=== PATIENT | female | born 1990 | race Caucasian/White ===

== ENCOUNTER 2017-02-18 20:03 | Emergency (ER) | payer OTHER ==
[2017-02-18] MEDS ORDERED: Sodium Chloride 0.9% 1000 ML 1,000 ML ONE ×2 (20:55→22:10)
[2017-02-18] MEDS ORDERED: Sodium Chloride 0.9% 1000 ML 1,000 ML IV STA ×2 (20:59→22:09)
--- NOTE | 2017-02-18 21:06 | ERPHSYRPT ---
- History of Present Illness Time Seen by Provider: 02/18/17 20:50 Source: patient Exam Limitations: clinical condition Patient Subjective Stated Complaint: pt states she has been sick, vomiting, coughing, and having fever off and on for approx 1 month. states she has begun having pain below her lt ribcage since yesterday Triage Nursing Assessment: pt alert and oriented. answers questions approp. pt ambulatory with steady gait noted. skin flushed, hot, dry. respirations nonlabored with lungs cta. abd soft and nontender to light palpation. Physician History: PATIENT INITIALLY TREATED FOR FLU LIKE SYMPTOMS 1 MONTH AGO, HAS INTERMITTENT FEVER, COUGH PRODUCTIVE YELLOW SPUTUM, AND SORETHROAT. HAD EPISODES OF EMESIS X 4 SEVERAL DAYS AGO. HAS VERY POOR ORAL FLUID INTAKE. DENIES DIARRHEA, ABDOMINAL PAIN, DYSPNEA. Timing/Duration: week(s) Cough Quality/Degree: moderate, productive cough, sputum (YELLOW) Possible Cause: no prior episodes Modifying Factors: Improves With: coughing Associated Symptoms: fever, chills, cough, sore throat International travel in last 2 weeks: No Allergies/Adverse Reactions: cephalexin [From Keflex] Allergy (Verified 02/18/17 20:31) Hives morphine Allergy (Verified 02/18/17 20:31) Hives nitrofurantoin [From Macrobid] Allergy (Verified 02/18/17 20:31) Hives Home Medications: Control 1 tab PO DAILY 02/18/17 [History] Hx Tetanus, Diphtheria Vaccination/Date Given: Yes Hx Influenza Vaccination/Date Given: No Hx Pneumococcal Vaccination/Date Given: No Immunizations Up to Date: Yes - Review of Systems Constitutional: Fever Eyes: No Symptoms Ears, Nose, & Throat: Throat Pain Respiratory: Cough, No Dyspnea Cardiac: No Symptoms, No Chest Pain, No Edema, No Syncope Abdominal/Gastrointestinal: Nausea, Vomiting, No Abdominal Pain, No Diarrhea Genitourinary Symptoms: No Symptoms, No Dysuria Musculoskeletal: No Symptoms, No Back Pain, No Neck Pain Skin: No Symptoms, No Rash Neurological: No Symptoms, No Dizziness, No Focal Weakness, No Sensory Changes Psychological: No Symptoms Endocrine: No Symptoms All Other Systems: Reviewed and Negative - Past Medical History Pertinent Past Medical History: Yes Neurological History: Migraines History: Other Other Medical History: hashimotos, recent dx. migraines. renal reflux as a child. heart murmer - Past Surgical History Past Surgical History: Yes Musculoskeletal: Orthopedic Surgery Other Surgical History: fx arm, tonsills - Social History Smoking Status: Never smoker Exposure to second hand smoke: No Drug Use: none Patient Lives Alone: No - Female History Hx Last Menstrual Period: 2 weeks ago - Nursing Vital Signs Nursing Vital Signs: Initial Vital Signs Temperature 98.5 F Temperature Source Oral Pulse Rate 110 Respiratory Rate 20 Blood Pressure [] 98/58 Pain Intensity 1 - Physical Exam General Appearance: no apparent distress, alert Eye Exam: PERRL/EOMI, eyes nml inspection Ears, Nose, Throat Exam: normal ENT inspection, TMs normal, pharynx normal, moist mucous membranes Neck Exam: normal inspection, non-tender, supple, full range of motion Respiratory Exam: normal breath sounds, chest tenderness, lungs clear, other ( TENDERNESS LEFT LATERAL LOWER RIBS 11TH TO 12TH), No respiratory distress Cardiovascular Exam: regular rate/rhythm, normal heart sounds Gastrointestinal/Abdomen Exam: soft, normal bowel sounds (NONTENDER), No tenderness Back Exam: normal inspection, No CVA tenderness, No vertebral tenderness Extremity Exam: normal inspection, normal range of motion Neurologic Exam: alert, oriented x 3, cooperative, normal mood/affect, sensation nml, No motor deficits Skin Exam: normal color, warm, dry, No rash Lymphatic Exam: No adenopathy SpO2 Interpretation: normal SpO2: 96 Oxygen Delivery: Room Air - Radiology Exams Chest X-ray Interpretation: Interpreted by me, Negative, No Infiltrates Ordered Tests: Active Orders 24 hr Category Date Time Status IV Insertion STAT Care 02/18/17 20:59 Active CHEST 2 VIEWS (PA AND LAT) Stat Exams 02/18/17 21:00 Taken BLOOD CULTURE Stat Lab 02/18/17 21:21 Received BMP Stat Lab 02/18/17 21:07 Completed CBC W DIFF Stat Lab 02/18/17 21:21 Completed CULTURE, THROAT Stat Lab 02/18/17 21:22 Received HCG,QUALITATIVE URINE Stat Lab 02/18/17 21:01 Completed Manual Differential NC Stat Lab 02/18/17 21:21 Completed [place] Screen Stat Lab 02/18/17 20:45 Completed STREP SCREEN-BETA A Stat Lab 02/18/17 21:22 Completed UA W/ MICROSCOPIC Stat Lab 02/18/17 21:00 Completed Medication Summary Discontinued Medications Generic Name Dose Route Start Last Admin Trade Name Freq PRN Reason Stop Dose Admin Sodium Chloride Confirm 02/18/17 20:55 Sodium Chloride 0.9% 1000 Ml Administered 02/18/17 20:56 Dose 1,000 mls @ ud .ROUTE .STK-MED ONE Sodium Chloride 1,000 mls @ 999 mls/hr 02/18/17 20:59 02/18/17 21:03 Sodium Chloride 0.9% 1000 Ml IV 02/18/17 21:59 999 mls/hr .Q1H1M STA Administration Levofloxacin/Dextrose 100 mls @ 100 mls/hr 02/18/17 22:08 02/18/17 22:15 Levofloxacin 500mg/100ml D5w IV 02/18/17 23:07 100 mls/hr STAT ONE Administration Sodium Chloride 1,000 mls @ 999 mls/hr 02/18/17 22:09 02/18/17 22:11 Sodium Chloride 0.9% 1000 Ml IV 02/18/17 23:09 999 mls/hr .Q1H1M STA Administration Sodium Chloride Confirm 02/18/17 22:10 Sodium Chloride 0.9% 1000 Ml Administered 02/18/17 22:11 Dose 1,000 mls @ ud .ROUTE .STK-MED ONE Levofloxacin/Dextrose Confirm 02/18/17 22:14 Levofloxacin 500mg/100ml D5w Administered 02/18/17 22:15 Dose 100 mls @ ud IV .STK-MED ONE Lab/Rad Data: Laboratory Result Diagrams 02/18/17 21:21 02/18/17 21:07 Laboratory Results 02/18/17 02/18/17 02/18/17 Range/Units 21:22 21:21 21:07 WBC 8.2 (4.0-10.5) K/mm3 RBC 4.23 (4.1-5.4) M/mm3 Hgb 12.8 (12.0-16.0) gm/dl Hct 38.5 (35-47) % MCV 91.0 (78-100) fl MCH 30.3 (26-32) pg MCHC 33.2 (32-36) g/dl RDW 12.4 (11.5-14.0) % Plt Count 251 (150-450) K/mm3 MPV 10.5 H (6-9.5) fl Segmented Neutrophils 80 H (36.0-66.0) % Band Neutrophils 2 (0.0-2.0) % Lymphocytes (Manual) 8 L (24-44) % Monocytes (Manual) 10 (0.0-12.0) % Differential Comment NORMAL Platelet Estimate NORMAL (NORMAL) Sodium 138 (136-145) mEq/L Potassium 3.4 L (3.5-5.1) mEq/L Chloride 101 (98-107) mEq/L Carbon Dioxide 24.5 (21-32) mEq/L Anion Gap 16.1 H (5-15) MEQ/L BUN 10 (9-20) mg/dL Creatinine 0.92 (0.55-1.30) mg/dl Estimated GFR > 60 ML/MIN Glucose 114 H (70-110) MG/DL Calcium 9.2 (8.5-10.1) mg/dL Ur Collection Type Urine Color (YELLOW) Urine Appearance (CLEAR) Urine pH (5-6) Ur Specific Ferguson (1.005-1.025) Urine Protein (Negative) Urine Glucose (UA) (NEGATIVE) mg/dL Urine Ketones (NEGATIVE) Urine Nitrite (NEGATIVE) Urine Bilirubin (NEGATIVE) Urine Urobilinogen (0-1) mg/dL Urine WBC (Auto) (NEGATIVE) Urine RBC (Auto) (0-5) Aly/ul Urine Microscopic RBC (0-2) /HPF Urine Microscopic WBC (0-5) /HPF Ur Epithelial Cells (FEW) /HPF Urine Bacteria (NEGATIVE) /HPF Urine Mucus (NEGATIVE) /HPF Urine HCG, Qual (Negative) Monoscreen (Negative) Streptococcus Screen NEGATIVE (Negative) Specimen Received 02/18/17 02/18/17 02/18/17 Range/Units 21:01 21:00 20:45 WBC (4.0-10.5) K/mm3 RBC (4.1-5.4) M/mm3 Hgb (12.0-16.0) gm/dl Hct (35-47) % MCV (78-100) fl MCH (26-32) pg MCHC (32-36) g/dl RDW (11.5-14.0) % Plt Count (150-450) K/mm3 MPV (6-9.5) fl Segmented Neutrophils (36.0-66.0) % Band Neutrophils (0.0-2.0) % Lymphocytes (Manual) (24-44) % Monocytes (Manual) (0.0-12.0) % Differential Comment Platelet Estimate (NORMAL) Sodium (136-145) mEq/L Potassium (3.5-5.1) mEq/L Chloride (98-107) mEq/L Carbon Dioxide (21-32) mEq/L Anion Gap (5-15) MEQ/L BUN (9-20) mg/dL Creatinine (0.55-1.30) mg/dl Estimated GFR ML/MIN Glucose (70-110) MG/DL Calcium (8.5-10.1) mg/dL Ur Collection Type CLEAN CATCH Urine Color YELLOW (YELLOW) Urine Appearance CLEAR (CLEAR) Urine pH 7.0 (5-6) Ur Specific Ferguson 1.015 (1.005-1.025) Urine Protein NEGATIVE (Negative) Urine Glucose (UA) NEGATIVE (NEGATIVE) mg/dL Urine Ketones MODERATE-40 (NEGATIVE) Urine Nitrite NEGATIVE (NEGATIVE) Urine Bilirubin NEGATIVE (NEGATIVE) Urine Urobilinogen 0.2 (0-1) mg/dL Urine WBC (Auto) NEGATIVE (NEGATIVE) Urine RBC (Auto) TRACE-LYSED (0-5) Aly/ul Urine Microscopic RBC 2-5 (0-2) /HPF Urine Microscopic WBC 0-2 (0-5) /HPF Ur Epithelial Cells MODERATE (FEW) /HPF Urine Bacteria FEW (NEGATIVE) /HPF Urine Mucus SLIGHT (NEGATIVE) /HPF Urine HCG, Qual NEGATIVE (Negative) Monoscreen NEGATIVE (Negative) Streptococcus Screen (Negative) Specimen Received 02/18/17 2100 - Progress Progress Note: 02/18/17 21:05 PATIENT HYDRATED NORMAL SALINE 2 LITERS OVER 2 HOURS, ROCEPHIN 1GM AFTER 2 SETS OF BLOOD CULTURES OBTAINED. Counseled pt/family regarding: lab results, diagnosis, need for follow-up, rad results - Departure Time of Disposition: 23:30 Departure Disposition: Home Clinical Impression: ACUTE BRONCHITIS, [id number] Condition: Stable Critical Care Time: No Additional Instructions: ANTIBIOTIC AUGMENTIN 875MG TWICE DAILY FOR 10 DAYS. TYLENOL OR MOTRIN FOR FEVER NEEDED. KLOR CON 20MEQ TWICE DAILY FOR 5 DAYS FOR TREATMENT FOR LOW POTASSIUM. CONSULT YOUR FAMILY PHYSICIAN FOR EVALUATION IN 1 WEEK. Prescriptions: Amox Tr/Potass Clav. 875 mg [Augmentin 875-125 Tablet] 875 mg PO BID #20 tablet Potassium Chloride 20 Meq [Klor-Con 20 MEQ] 20 meq PO BID #10 tab
[2017-02-18 21:14] LABS: ANION GAP 16.1 MEQ/L (5-15); BLOOD UREA NITROGEN 10 mg/dL (9-20); CHLORIDE 101 mEq/L (98-107); Carbon Dioxide 24.5 mEq/L (21-32); Glucose 114 MG/DL (70-110); Potassium 3.4 mEq/L (3.5-5.1); SODIUM 138 mEq/L (136-145)
[2017-02-18 21:25] LABS: Mean Corpuscular Hemoglobin 30.3 pg (26-32); Mean Platelet Volume 10.5 fl (6-9.5); Platelet Count 251 K/mm3 (150-450); Red Blood Count 4.23 M/mm3 (4.1-5.4); Red Cell Distribution Width 12.4 % (11.5-14.0); White Blood Count 8.2 K/mm3 (4.0-10.5)
[2017-02-18 21:37] LABS: Bacteria FEW /HPF (NEGATIVE); COMPLETE URINE MICROSCOPIC? YES; Collection Type CLEAN CATCH; Epithelial Cells MODERATE /HPF (FEW); Mucus SLIGHT /HPF (NEGATIVE); WBC 0-2 /HPF (0-5)
[2017-02-18] MEDS ORDERED: Levofloxacin 500MG/100ML D5W 100 ML IV ONE ×2 (22:08→22:14)
[2017-02-18 22:32] LABS: BAND 2 % (0.0-2.0); Platelet Estimate NORMAL (NORMAL); Total Cells Counted 100
[2017-02-18 23:31] VITALS: BP 106/70; PULSE 76; O2SAT 100
--- NOTE | 2017-02-19 08:59 | XRAY ---
Indication: Fever and cough. Comparison: None PA/lateral chest demonstrates normal heart, lungs, and bony thorax.
== END 2017-02-18 23:31 | disposition home or self-care (01) ==
LOC: ED 20:03
DX: J20.9 Acute bronchitis, unspecified (principal); E87.6 Hypokalemia
CPT/HCPCS: 36000; 36415; 71020; 80048; 81000; 84703; 85025; 86308; 87040; 87070; 87430; 96360; 96361; 96365; 99284; J1956